=== PATIENT | female | born 1980 | race Caucasian/White ===

== ENCOUNTER → 2018-11-26 07:44 | Outpatient (CLI) | payer BC, SELFPAY ==
[2018-11-26 08:18] LABS: Add Manual Diff / Slide Review NO; Basophils Absolute Auto 0 /uL (0-100); Basophils Percent Auto 0.4 % (0-2); Eosinophils Absolute Auto 0 /uL (0-450); Eosinophils Percent Auto 0.8 % (2-4); Hematocrit 40.6 % (36-46); Hemoglobin 13.9 g/dL (12.0-16.0); Lymphocytes Absolute Auto 1100 /uL (1100-4500); Lymphocytes Percent Auto 22.8 % (25-40); Mean Corpuscular HGB Conc 34.2 % (30-36); Mean Corpuscular Hemoglobin 30.8 PG (26-34); Mean Corpuscular Volume 90.3 fL (80-100); Monocytes Absolute Auto 500 /uL (0-900); Monocytes Percent Auto 10.7 % (3-14); Neutrophils Absolute Auto 3000 /uL (1500-7000); Neutrophils Percent Auto 65.3 % (50-75); Platelet Count 224 X10^3/uL (150-400); Red Blood Cell Count 4.49 X10^6/uL (4.0-5.2); Red Cell Distribution Width 12.3 % (11.6-14.8); White Blood Cell Count 4.7 X10^3/uL (4.5-11.0)
[2018-11-26 08:34] LABS: Alanine Aminotransferase 28 IU/L (9-52); Albumin 4.1 g/dL (3.5-5.0); Albumin Globulin Ratio 1.1 (1.0-2.8); Alkaline Phosphatase 60 U/L (38-126); Aspartate Aminotransferase 37 IU/L (14-36); BUN Creatinine Ratio 11.4 (6-22); Bilirubin Total 0.5 mg/dL (0.2-1.3); Blood Urea Nitrogen 8 mg/dL (7-17); Carbon Dioxide 26 mmol/L (22-32); Chloride 103 mmol/L (98-107); Cholesterol 124 mg/dL (140-199); Estimated Glomerular Filt Rate > 60.0 mL/min (>60); Globulin 3.6 g/dL (1.7-4.1); Glucose 88 mg/dL (70-100); HDL Cholesterol 31 mg/dL (40-60); HEMOLYSIS 18 (0-50); LDL Cholesterol Calculated 71 mg/dL (<100); Potassium 4.2 mmol/L (3.4-5.1); Sodium 139 mmol/L (137-145); Total Protein 7.7 g/dL (6.3-8.2); Triglycerides 108 mg/dL (35-150)
[2018-11-26 08:39] LABS: Appearance Urine UA CLEAR; Bilirubin Urine UA NEGATIVE (NEGATIVE); Color Urine UA YELLOW; Glucose Urine UA NEGATIVE (Negative); Ketones Urine UA NEGATIVE (NEGATIVE); Leukocyte Esterase Urine UA TRACE (NEGATIVE); Nitrite Urine UA NEGATIVE (Negative); Occult Blood Urine UA NEGATIVE (Negative); Protein Urine UA NEGATIVE (Negative); pH Urine UA 6.5 (4.5-8.0)
[2018-11-26 09:13] LABS: RBC Urine 0-1/HPF (0-5/HPF); Squamous Epithelial Cell Urine 10-30 /HPF (0-5/HPF); Thyroid Stimulating Hormone 2.56 uIU/mL (0.47-4.68); WBC Urine 1-5/HPF (0-5/HPF)
[2018-11-26 09:14] LABS: Bacteria Urine Moderate (10-30); Culture Indicated Urine Cult Not Indicated; Mucus Urine 1+ (Negative)
== END ==
PROVIDERS: PCP Family Medicine; Visit Provider Family Medicine
DX: G89.4 Chronic pain syndrome (principal); Z13.220 Encounter for screening for lipoid disorders; Z13.29 Encounter for screening for other suspected endocrine disorder; Z51.81 Encounter for therapeutic drug level monitoring
CPT/HCPCS: 36415; 80053; 80061; 81003; 81015; 84443; 85025

== ENCOUNTER → 2019-08-25 08:26 | Outpatient (CLI) | payer BC, SELFPAY ==
--- NOTE | 2019-08-25 08:28 | DI.MG.S_ITS ---
BILATERAL DIGITAL SCREENING MAMMOGRAM 3D/2D WITH CAD: 08/25/2019 CLINICAL: Baseline exam. Routine screening. No prior exams were available for comparison. The tissue of both breasts is heterogeneously dense. This may lower the sensitivity of mammography. Current study was also evaluated with a Computer Aided Detection (CAD) system. No significant masses, calcifications, or other findings are seen in either breast. IMPRESSION: NEGATIVE There is no mammographic evidence of malignancy. A 1 year screening mammogram is recommended. This exam was interpreted at Station ID: [id number]. NOTE: For mammograms, a report in lay terms will be sent to the patient. Approximately 15% of breast malignancies will not be visualized mammographically. In the management of a palpable breast mass, a negative mammogram must not discourage biopsy of a clinically suspicious lesion. Electronically Signed By: Zoila mercer/je:08/25/2019 09:10:41 letter sent: Normal Exam ACR BI-RADS Category 1: Negative 3341F
== END ==
PROVIDERS: PCP Family Medicine; Referring Provider Family Medicine; Visit Provider Family Medicine
DX: Z12.31 Encounter for screening mammogram for malignant neoplasm of breast (principal)
CPT/HCPCS: 77063; 77067

== ENCOUNTER → 2020-03-16 08:46 | Outpatient (CLI) | payer BC, SELFPAY ==
--- NOTE | 2020-03-16 08:48 | DI.RAD.S_ITS ---
PROCEDURE: XR LUMBAR SPINE 2-3V INDICATIONS: Persistent lower back pain, status post lumbar fusion TECHNIQUE: 3 views of the lumbar spine were acquired. COMPARISON: [facility], MR, L-SPINE WITHOUT CONTRAST, 09/05/2016, 12:43. [facility], CR, L-SPINE 2-3 VIEWS, 10/25/2016, 14:36. FINDINGS: Bones: Postoperative changes are seen, with bilateral pedicle screws at the this L4 and L5 levels. The screws appear well placed. Vertical fixation rods are seen. A disc spacer is seen at the L4-L5 level. No findings of hardware failure or hardware loosening are seen. 5 nonrib-bearing, lumbar type vertebral bodies are seen. No acute appearing fractures are seen. No suspicious lytic or blastic lesions can be seen. Minimal levoconvex lumbar scoliotic curvature is seen. There is minimal retrolisthesis seen at the L1-2 level. There is mild loss of disc height seen at L1-2, L2-3, and L3-4. Soft tissues: Overlying bowel gas pattern is normal. No suspicious soft tissue calcifications. IMPRESSION: Unremarkable L4-5 postoperative change. Dictated by: Dontrell Martinez M.D. on 03/16/2020 at 9:02 Approved by: Dontrell Martinez M.D. on 03/16/2020 at 9:04
== END ==
PROVIDERS: PCP Family Medicine; Referring Provider Family Medicine; Visit Provider Family Medicine
DX: M54.5 Low back pain (principal); Z98.1 Arthrodesis status
CPT/HCPCS: 72100

== ENCOUNTER → 2020-05-19 08:45 | Outpatient (CLI) | payer BC, SELFPAY ==
[2020-05-19 10:05] LABS: Add Manual Diff / Slide Review NO; Basophils Absolute Auto 0 /uL (0-100); Basophils Percent Auto 0.6 % (0-2); Eosinophils Absolute Auto 100 /uL (0-450); Eosinophils Percent Auto 1.4 % (2-4); Hematocrit 39.5 % (36-46); Hemoglobin 13.4 g/dL (12.0-16.0); Lymphocytes Absolute Auto 1700 /uL (1100-4500); Lymphocytes Percent Auto 23.8 % (25-40); Mean Corpuscular HGB Conc 33.8 % (30-36); Mean Corpuscular Hemoglobin 31.2 PG (26-34); Mean Corpuscular Volume 92.3 fL (80-100); Monocytes Absolute Auto 600 /uL (0-900); Monocytes Percent Auto 8.1 % (3-14); Neutrophils Absolute Auto 4700 /uL (1500-7000); Neutrophils Percent Auto 66.1 % (50-75); Platelet Count 281 X10^3/uL (150-400); Red Blood Cell Count 4.28 X10^6/uL (4.0-5.2); Red Cell Distribution Width 12.3 % (11.6-14.8)
[2020-05-19 10:34] LABS: Alanine Aminotransferase 23 IU/L (<35); Albumin 4.3 g/dL (3.5-5.0); Albumin Globulin Ratio 1.2 (1.0-2.8); Alkaline Phosphatase 54 U/L (38-126); Aspartate Aminotransferase 30 IU/L (14-36); Bilirubin Total 0.5 mg/dL (0.2-1.3); Blood Urea Nitrogen 12 mg/dL (7-17); Calcium 9.3 mg/dL (8.4-10.2); Carbon Dioxide 30 mmol/L (22-32); Chloride 104 mmol/L (98-107); Cholesterol 156 mg/dL (140-199); Estimated Glomerular Filt Rate > 60.0 mL/min (>60); Globulin 3.7 g/dL (1.7-4.1); Glucose 83 mg/dL (70-100); HDL Cholesterol 53 mg/dL (40-60); HEMOLYSIS < 15 (0-50); LDL Cholesterol Calculated 87 mg/dL (<100); Potassium 4.6 mmol/L (3.4-5.1); Sodium 138 mmol/L (137-145); Triglycerides 78 mg/dL (35-150)
[2020-05-19 11:03] LABS: TSH w/ Reflex to FT4 1.12 uIU/mL (0.47-4.68)
== END ==
PROVIDERS: PCP Family Medicine; Referring Provider Family Medicine; Visit Provider Family Medicine
DX: Z00.00 Encounter for general adult medical examination without abnormal findings (principal)
CPT/HCPCS: 36415; 80053; 80061; 84443; 85025

== ENCOUNTER → 2020-09-28 08:08 | Outpatient (CLI) | payer BC, SELFPAY ==
--- NOTE | 2020-09-28 | DI.MG.S_ITS ---
BILATERAL DIGITAL SCREENING MAMMOGRAM 3D/2D WITH CAD: 09/28/2020 CLINICAL: Routine screening. Comparison is made to exam dated: 08/25/2019 [facility]. The tissue of both breasts is heterogeneously dense. This may lower the sensitivity of mammography. Current study was also evaluated with a Computer Aided Detection (CAD) system. No significant masses, calcifications, or other findings are seen in either breast. There has been no significant interval change. IMPRESSION: NEGATIVE There is no mammographic evidence of malignancy. A 1 year screening mammogram is recommended. This exam was interpreted at Station ID: [id number]. NOTE: For mammograms, a report in lay terms will be sent to the patient. Approximately 15% of breast malignancies will not be visualized mammographically. In the management of a palpable breast mass, a negative mammogram must not discourage biopsy of a clinically suspicious lesion. Electronically Signed By: Manuel Parisi M.D., jr/je:09/29/2020 08:55:01 letter sent: Normal Exam ACR BI-RADS Category 1: Negative 3341F
== END ==
PROVIDERS: PCP Family Medicine; Referring Provider Family Medicine; Visit Provider Family Medicine
DX: Z12.31 Encounter for screening mammogram for malignant neoplasm of breast (principal)
CPT/HCPCS: 77063; 77067

== ENCOUNTER → 2020-10-13 11:18 | Outpatient (CLI) | payer BC, SELFPAY ==
[2020-10-13 11:50] LABS: Add Manual Diff / Slide Review NO; Basophils Absolute Auto 0 /uL (0-100); Basophils Percent Auto 0.6 % (0-2); Eosinophils Absolute Auto 0 /uL (0-450); Eosinophils Percent Auto 0.7 % (2-4); Hematocrit 39.4 % (36-46); Hemoglobin 12.9 g/dL (12.0-16.0); Lymphocytes Absolute Auto 1700 /uL (1100-4500); Lymphocytes Percent Auto 24.4 % (25-40); Mean Corpuscular HGB Conc 32.8 % (30-36); Mean Corpuscular Hemoglobin 30.6 PG (26-34); Mean Corpuscular Volume 93.1 fL (80-100); Monocytes Absolute Auto 500 /uL (0-900); Monocytes Percent Auto 7.7 % (3-14); Neutrophils Absolute Auto 4600 /uL (1500-7000); Neutrophils Percent Auto 66.6 % (50-75); Platelet Count 247 X10^3/uL (150-400); Red Blood Cell Count 4.24 X10^6/uL (4.0-5.2); Red Cell Distribution Width 12.6 % (11.6-14.8); White Blood Cell Count 6.9 X10^3/uL (4.5-11.0)
== END ==
PROVIDERS: PCP Family Medicine; Referring Provider Family Medicine; Visit Provider Family Medicine
DX: R22.1 Localized swelling, mass and lump, neck (principal)
CPT/HCPCS: 36415; 85025

== ENCOUNTER → 2020-10-20 08:04 | Outpatient (CLI) | payer BC, SELFPAY ==
--- NOTE | 2020-10-20 08:05 | DI.US.S_ITS ---
PROCEDURE: US THYROID INDICATIONS: POSTERIOR RIGHT NECK LUMP TECHNIQUE: Real-time scanning was performed of the thyroid gland, with image documentation. COMPARISON: None. FINDINGS: Right: Thyroid lobe measures 5.5 x 1.7 x 1.7 cm. Left: Thyroid lobe measures 4.5 x 1.1 x 1.3 cm, and is homogenous in echotexture. Isthmus: 2 mm thick. Nodule number: 1 Location: Right inferior thyroid Size: 1.5 x 0.8 x 1.1 cm. Composition: Solid Echogenicity: Hypoechoic Shape: wider than tall. Margins: Smooth Echogenic foci: Punctate Total points: 7 ACR TI-RADS category: 5 At the area of clinical concern, there is a normal appearing lymph node, with a fatty vascular hilum that measures 10 x 5 x 15 mm. IMPRESSION: There is a 1.5 cm suspicious nodule seen involving the inferior aspect of the right thyroid, for which an ultrasound-guided percutaneous biopsy is now recommended. A normal appearing lymph node can be seen at the area of clinical concern. ACR TI-RADS definitions and recommendations: TI-RADS 1 (benign): 0 points. FNA not needed. TI-RADS 2 (not suspicious): 2 points. FNA not needed. TI-RADS 3 (mildly suspicious): 3 points. * FNA if 2.5 cm or larger, follow up if 1.5 cm or larger (at 1, 3, and 5 years). TI-RADS 4 (moderately suspicious): 4-6 points. * FNA if 1.5 cm or larger, follow up if 1 cm or larger (at 1, 2, 3, and 5 years). TI-RADS 5 (highly suspicious): 7 points or more. * FNA if 1 cm or larger, follow up if 0.5 cm or larger (every year for 5 years). Dictated by: Dontrell Martinez M.D. on 10/20/2020 at 10:22 Approved by: Dontrell Martinez M.D. on 10/20/2020 at 10:24
== END ==
PROVIDERS: PCP Family Medicine; Referring Provider Family Medicine; Visit Provider Family Medicine
DX: E04.1 Nontoxic single thyroid nodule (principal)
CPT/HCPCS: 76536

== ENCOUNTER → 2020-11-02 09:10 | Outpatient (CLI) | payer BC, SELFPAY ==
--- NOTE | 2020-11-02 | PATH_ITS ---
Note [facility] Accession Number: [id number] TESTS RESULT FLAG UNITS REF RANGE LAB Clinician Provided Cytology Information No. of containers..01 Other (Miscellaneous) No. of containers..00 Previously Prepared Cytology Slide INFERIOR RIGHT THYROID NODULE DIAGNOSIS: INFERIOR RIGHT THYROID NODULE NEGATIVE FOR MALIGNANT CELLS. B[place] CATEGORY II. SPECIMEN CONSISTS OF BENIGN FOLLICULAR CELLS, SOME OF WHICH ARE HURTHELOID, MACROPHAGES, AND COLLOID. THIS PATTERN IS CONSISTENT WITH A BENIGN FOLLICULAR NODULE. COMMENT: Medical Lab Technician slides of this case are also reviewed by Dr. Franca Chavez who concurs with the given interpretation. Pathologist ICD10: 01 E04.1 Kimberly Monique MD, Pathologist NPI- [id number] Momo Barboza, [facility] ([facility]) 01 30 CC, PINK, CLEAR RECIEVED: IN CYTOLYT WITH 5 ALCOHOL FIXED AND 5 QUICK STAINED SLIDES ALSO 1 RNA VIAL WAS RECEIVED FOR FURTHER TESTING. /VDU 11/03/2020 0723 Local FLAG LEGEND: L-Low Normal,H-High Normal,LL-Alert Low,HH-Alert High <-Panic Low,>-Panic High,A-Abnormal,AA-Critical Abnormal Performed at: 01 =[facility] [address], [place] [address] Aníbal Roth MD, Performed at: 01 [facility] [address], [place], [place] [id number] MD Aníbal Roth MD Phone: [phone]
--- NOTE | 2020-11-02 09:11 | DI.US.S_ITS ---
PROCEDURE: US FINE NEEDLE ASPIRATION INDICATIONS: THYROID NODULE TECHNIQUE: The indications, alternatives, benefits, risks, and complications of the procedure were explained to the patient. Written informed consent was obtained and placed in the chart. The thyroid region was examined sonographically and a site was chosen for ultrasound guided percutaneous sampling. The skin was prepared and draped in the usual fashion, and anesthetized with 1% lidocaine infiltrated from the skin down to the thyroid gland. Multiple passes were then performed, with contents emptied into an appropriate pathology specimen container. A bandage was applied to the area of access at completion of the study. COMPARISON: None. FINDINGS: Location(s) of lesion(s) sampled: Right lobe nodule Banner: 25 gauge hypodermic needles. Number of passes: 6 Medications: 1% lidocaine for local anaesthesia. Complications: None. IMPRESSION: Successful ultrasound-guided thyroid nodule fine needle aspiration, with cytology results pending. Please see chart below for management recommendations based on cytology results. [facility] ReportingRecommendationsNon-diagnostic* Repeat US-guided FNA, with on-site cytology evaluation if possible. * Repeated non-diagnostic nodules without high suspicion US features: close observation vs surgical consult. * Consider surgery if nodule has high suspicion US features, grows >20% in 2 dimensions on followup, or patient has clinical risk factors for malignancy. Benign* If nodule has high suspicion US features: repeat US and FNA within 12 months. * If nodule has low to intermediate suspicion US features: repeat US at 12-24 months. If nodule grows (20% increase in at least 2 dimensions, with minimal increase of 2 mm or >50% change in volume), or development of new suspicious US features, then repeat FNA or continue followup. * If nodule has very low suspicion US features: followup US at >24 months. Atypia of undetermined significance, follicular lesion of undetermined significanceRepeat FNA, molecular testing, followup US, or surgical consult.Follicular neoplasm, suspicious for follicular neoplasmSurgical consult; also consider molecular testing. Suspicious for malignancySurgical consult.MalignantSurgical consult. Dictated by: Dory Crow MD, PhD on 11/02/2020 at 13:41 Approved by: Dory Crow MD, PhD on 11/02/2020 at 13:41
== END ==
PROVIDERS: PCP Family Medicine; Referring Provider Family Medicine; Visit Provider Family Medicine
DX: E04.1 Nontoxic single thyroid nodule (principal)
CPT/HCPCS: 10005

== ENCOUNTER → 2020-11-16 13:43 | Outpatient (CLI) | payer BC, SELFPAY ==
--- NOTE | 2020-11-16 13:46 | DI.RAD.S_ITS ---
PROCEDURE: XR FOOT RT MIN 3V INDICATIONS: right foot and right ankle pain TECHNIQUE: 3 views of the foot were acquired. COMPARISON: None. FINDINGS: Bones: No fractures or dislocations. No suspicious bony lesions. Soft tissues: No tibiotalar joint effusion. Achilles tendon appears normal. IMPRESSION: No fracture. No osseous lesion. If symptoms and/or clinical suspicion for pathology persists, further assessment with repeat radiographs (7-10 days) or advanced imaging (e.g. CT, MRI or bone scan) should be considered. Dictated by: Dory Crow MD, PhD on 11/16/2020 at 18:01 Approved by: Dory Crow MD, PhD on 11/16/2020 at 18:03
[2020-11-16 13:49] LABS: RBC Urine None Seen (0-5/HPF)
[2020-11-16 14:11] LABS: Appearance Urine UA CLEAR; Bilirubin Urine UA NEGATIVE (NEGATIVE); Color Urine UA YELLOW; Glucose Urine UA NEGATIVE (Negative); Ketones Urine UA NEGATIVE (NEGATIVE); Leukocyte Esterase Urine UA TRACE (NEGATIVE); Nitrite Urine UA NEGATIVE (Negative); Occult Blood Urine UA NEGATIVE (Negative); Protein Urine UA NEGATIVE (Negative); Urobilinogen Urine UA 0.2 E.U./dL (0.2)
[2020-11-16 14:15] LABS: Add Manual Diff / Slide Review NO; Basophils Absolute Auto 100 /uL (0-100); Basophils Percent Auto 0.8 % (0-2); Eosinophils Absolute Auto 100 /uL (0-450); Eosinophils Percent Auto 0.9 % (2-4); Hematocrit 39.2 % (36-46); Hemoglobin 13.3 g/dL (12.0-16.0); Lymphocytes Absolute Auto 1900 /uL (1100-4500); Lymphocytes Percent Auto 24.2 % (25-40); Monocytes Absolute Auto 600 /uL (0-900); Monocytes Percent Auto 7.7 % (3-14); Neutrophils Absolute Auto 5200 /uL (1500-7000); Neutrophils Percent Auto 66.4 % (50-75); Platelet Count 232 X10^3/uL (150-400); Red Blood Cell Count 4.31 X10^6/uL (4.0-5.2); Red Cell Distribution Width 12.5 % (11.6-14.8); White Blood Cell Count 7.8 X10^3/uL (4.5-11.0)
[2020-11-16 14:38] LABS: Bacteria Urine Occasional (0-1); Culture Indicated Urine Specimen Cultured; Squamous Epithelial Cell Urine 1-5 /HPF (0-5/HPF); WBC Urine 1-5/HPF (0-5/HPF)
[2020-11-16 14:51] LABS: Free T4, Direct Thyroxine 0.99 ng/dL (0.78-2.19)
[2020-11-16 15:02] LABS: Alanine Aminotransferase 19 IU/L (<35); Albumin Globulin Ratio 1.2 (1.0-2.8); Alkaline Phosphatase 49 U/L (38-126); Aspartate Aminotransferase 27 IU/L (14-36); BUN Creatinine Ratio 17.4 (6-22); Bilirubin Total 0.1 mg/dL (0.2-1.3); Blood Urea Nitrogen 12 mg/dL (7-17); Calcium 9.2 mg/dL (8.4-10.2); Carbon Dioxide 23 mmol/L (22-32); Chloride 106 mmol/L (98-107); Estimated Glomerular Filt Rate > 60.0 mL/min (>60); Globulin 3.3 g/dL (1.7-4.1); Glucose 99 mg/dL (70-100); HEMOLYSIS < 15 (0-50); Potassium 4.1 mmol/L (3.4-5.1); Sodium 139 mmol/L (137-145); Total Protein 7.3 g/dL (6.3-8.2)
[2020-11-16 15:05] LABS: Thyroid Stimulating Hormone 1.23 uIU/mL (0.47-4.68)
== END ==
PROVIDERS: PCP Family Medicine; Referring Provider Registered Nurse; Visit Provider Family Medicine
DX: M25.571 Pain in right ankle and joints of right foot (principal); M79.671 Pain in right foot; G89.4 Chronic pain syndrome; R30.0 Dysuria; R59.0 Localized enlarged lymph nodes; Z13.228 Encounter for screening for other metabolic disorders; Z13.29 Encounter for screening for other suspected endocrine disorder
CPT/HCPCS: 36415; 73630; 80053; 81001; 84439; 84443; 85025; 87086

== ENCOUNTER → 2020-11-20 09:39 | Outpatient (CLI) | payer BC, SELFPAY ==
[2020-11-20 12:45] LABS: COVID19 -Nasal RAPID Negative (Negative)
== END ==
PROVIDERS: PCP Family Medicine; Visit Provider Obstetrics & Gynecology
DX: Z01.812 Encounter for preprocedural laboratory examination (principal); Z20.822 Contact with and (suspected) exposure to COVID-19
CPT/HCPCS: 87635

== ENCOUNTER 2020-11-21 06:41 | Day surgery (SDC) | payer BC, SELFPAY ==
[2020-11-17 14:10] VITALS: BMI 30.4
[2020-11-21] VITALS (8 sets, daily range): BP systolic 106–113; BP diastolic 65–76; PULSE 71–96; RESP 12–17; TEMP 36.8–37.1; O2SAT 97–100; BMI 30.2
--- NOTE | 2020-11-21 | PATH_ITS ---
[facility] Accession Number: [id number] . 01 Material submitted: . OVARY/PARATUBAL - RIGHT OVARIAN CYST AND LEFT PARATUBAL CYST . 02 Diagnosis: Right Ovarian Cyst and Left Paratubal Cyst, Cystectomies: 1. Multiple fragments consistent with hemorrhagic corpus luteum cyst. 2. Separate fragment consistent with paratubal cyst. 3. No evidence of neoplasm. MRV 11/27/2020 1524 Local . 02 Electronically signed: . Betsy Hunter MD, Pathologist NPI- [id number] . 01 Gross description: . The specimen is received in formalin, labeled right ovarian cyst and left paratubal cyst and consists of a 2.5 x 2.0 x 1.2 cm fragmented cyst with a grant wrinkled external surface. Sectioning reveals grant to grant-yellow cut surfaces with no papillary excrescences. Also received is a 1.5 x 1.0 x 0.5 cm intact grant-pink cyst which contains a clear serous fluid. The specimen is entirely submitted. . A1-A2: fragmented cyst. A3: intact cyst, bisected. (EA:[id number]) /MRV 11/23/2020 1428 Local . 02 Pathologist provided ICD-10: N83.209 . 02 CPT . 126029 Performed at: 01 [facility] [address] [facility], [place], [place] [id number] MD Aníbal Roth MD Phone: [phone] Performed at: 02 [facility] [address] [place], [place] [id number] MD Betsy Hunter MD Phone: [phone]
[2020-11-21] MEDS: LACTATED RINGERS 1,000 ML 100 ML IV (07:30)
--- NOTE | 2020-11-21 07:39 | PM.HP.1 ---
History of Present Illness History of Present Illness Date Patient Seen: 11/21/20 Time Patient Seen: 07:39 Chief complaint: LAP REMOVAL R OVARIAN CYST Narrative: Patient is a 40-year-old 1 para 1 with a known history of endometriosis. She has a right ovarian cyst and dyspareunia. She is here for a diagnostic laparoscopy with excision of right ovarian cyst and possible fulguration of endometriosis. Patient History Medical History (Updated 11/20/20 @ 12:08 by Javed Flores DO) Chronic low back pain (Unknown) Contact dermatitis Endometriosis (Unknown) Fatigue Lymphadenopathy of right cervical region Multilevel degenerative disc disease (Unknown) Right ankle pain Right foot pain Thyroid nodule Well adult exam Surgical History (Updated 11/17/20 @ 14:21 by Geneva Bishop RN) History of lumbar fusion (2017) Hx of discectomy (06/2016) Hx of laminectomy (~10/2016) Status post laparoscopy (01/15/11) Family & Social History Social History: household members significant other Tobacco & Substance use: Smoking Status Never smoker alcohol intake current alcohol intake frequency holiday/special occasion Substance Use Type does not use Meds Home Medications and Allergies Home Medications Medication Instructions Recorded Confirmed Type hydrocodone-acetaminophen 0.5 tab PO BID PRN 11/21/20 11/21/20 History Allergies Allergy/AdvReac Type Severity Reaction Status Date / Time Sulfa (Sulfonamide Allergy Mild RASH Verified 11/21/20 07:14 Antibiotics) [SULFA (SULFONAMIDE ANTIBIOTICS)] Exam Vital Signs (past 8 hours): HEENT: No thyromegaly, no anterior cervical or supraclavicular lymphadenopathy. Lungs:Clear to auscultation bilaterally, no wheezes. Cardiovascular: Regular rate and rhythm, no murmurs, rubs, or gallops. Abdomen: Well-healed laparoscopy scars. No hepatosplenomegaly. No masses palpable. External genitalia: Normal Vagina: Normal Cervix: Normal Bimanual exam: 7 Week size uterus. Mobile. Bilateral uterus sacral tenderness. Right adnexal tenderness. Assessment & Plan Assessment & Plan narrative: Assessment: 40-year-old 1 para 1 with a known history of endometriosis with dyspareunia and a right ovarian cyst. Plan: Diagnostic laparoscopy with excision of right ovarian cyst Possible fulguration of endometriosis and lysis of adhesions The risks, benefits, and alternatives to the procedure were explained to the patient. The risks including bleeding, infection, injury to the bowel, bladder, or ureters. She understands these risks and agrees to proceed. A full par Q was held and consent form was signed. COVID-19 COVID-19 status: Negative Result date/Date tested (Pos, Neg/Pending): 11/20/20 Time Spent With Patient Time with patient: less than 15 minutes
--- NOTE | 2020-11-21 07:45 | P.OP_ITS ---
Operative Date/Time/Diagnoses Date of procedure: 11/21/20 Time of procedure: 09:36 Pre-op diagnosis: Dyspareunia History of endometriosis Right ovarian cyst Post-op diagnosis: same Procedure & Clinicians Procedure: Procedures Operation Date: 11/21/20 07:45 Actual Procedures Side Surgeon p Laparoscopic Removal of Right Ovarian Cyst, Fulguration of Endometriosis Marisela Chan MD Indications: Dyspareunia Right ovarian cyst History of endometriosis Surgeon: Marisela Chan Anesthesia Type: General and Local Operative Notes Findings: 7 week size anteverted uterus Normal tubes bilaterally 2 cm x 2 cm right ovarian cyst Normal liver, gallbladder, and appendix No evidence of residual endometriosis Left paratubal cyst Adenomyosis Closure Type: primary Specimen(s): other (Right ovarian cyst) Applied: catheter (In and out) Estimated blood loss (mL): 5 Blood products transfused: none Procedure in detail: After informed consent was obtained, the patient was taken to the operating room where she was placed in the dorsal supine position. After adequate general endotracheal anesthesia was achieved, she was placed in the dorsal lithotomy position, and prepped and draped in the usual sterile fashion. A time-out was performed. A bivalve speculum was placed into the vagina and a single-tooth tenaculum was placed on the anterior lip of the cervix. The cervical os was sequentially dilated until the Zumi uterine manipulator could pass easily into the endometrial cavity. The single-tooth tenaculum was removed from the anterior lip of the cervix. The bivalve speculum was removed from the vagina. Attention was turned to the abdomen where 6 cc of 0.5% Marcaine with epinephrine were injected in the umbilical fold. A 5 mm incision was made. The Veress needle was placed into the peritoneal cavity, and its placement confirmed by aspiration and drop test. The abdominal cavity was insufflated with 3.4 L of CO2. The Veress needle was removed, and a 5 mm trocar was placed without difficulty. Two other incisions were made 4 cm lateral to the midline after 6 cc of 0.5% Marcaine with epinephrine were injected and 2 5 mm trocars were placed under direct visualization. The cyst on the right ovary was grasped with an atraumatic grasper. Using the PlasmaKinetic was settings of 40 w, the cyst was excised with cautery and cut. The cyst was removed through the trocar, and sent to pathology. Hemostasis was achieved. The left paratubal cyst was grasped with an atraumatic grasper and using cautery and cut, the stalk was amputated from the tube. This was removed through the trocar. The pelvis was copiously irrigated with warm normal saline. There was no bleeding noted. The instruments were removed from the abdomen. The CO2 was allowed to escape. The incisions were repaired with 4 0 Biosyn in a subcuticular fashion. Steri-Strips and Allevyn dressings were placed. The Zumi uterine manipulator was removed from the uterus. Sponge, lap, and instrument counts were correct x2. The pa tient tolerated the procedure well, and was taken to PACU in stable condition. Complications: none Post-operative Condition: stable Disposition: PACU Plan for aftercare: Home after recovery
--- NOTE | 2020-11-21 07:45 | PM.PREOP ---
Pre-operative Note COVID-19 COVID-19 status: Negative Result date/Date tested (Pos, Neg/Pending): 11/20/20 Interval Note History & Physical reviewed/Exam performed by Physician: Yes Changes to H&P: No H&P completed within 30 days and has changed as indicated here:: 11/21/20
--- NOTE | 2020-11-21 08:07 | SUR.OPER ---
Lithotomy on padded OR bed, head on pillow, arms secured on padded arm boards at <90 degrees abduction. Legs secured in padded yellow fins stirrups.
[2020-11-21] MEDS: BUPIVACAINE 0.5% W/ EPI (PF) 30 ML VIAL INJ (08:29)
[2020-11-21] MEDS: OXYCODONE/ACETAMINOPHEN 5/325 TABLET 1 TAB PO (09:22)
[2020-11-21] MEDS: ONDANSETRON 4 MG/2 ML INJ IV (09:24)
== END 2020-11-21 10:05 | disposition home or self-care (01) ==
PROVIDERS: PCP Family Medicine; Referring Provider Family Medicine; Visit Provider Obstetrics & Gynecology
PROC: (CPT 58662; principal; 2020-11-21 07:45)
DX: N83.201 Unspecified ovarian cyst, right side (principal); Z87.42 Personal history of other diseases of the female genital tract; N83.8 Other noninflammatory disorders of ovary, fallopian tube and broad ligament
CPT/HCPCS: 58662; 81025; J1100; J1885; J2250; J2405; J2704; J3010

== ENCOUNTER 2021-07-04 11:09 | Emergency (ER) | payer BC, SELFPAY ==
[2021-07-04 11:19] VITALS: PULSE 79; RESP 18; TEMP 36.9; O2SAT 100; BMI 30.9
--- NOTE | 2021-07-04 11:23 | DI.RAD.S_ITS ---
PROCEDURE: XR CHEST 1V INDICATIONS: chest pain TECHNIQUE: One view of the chest was acquired. COMPARISON: None. FINDINGS: Surgical changes and devices: None. Lungs and pleura: Lungs are clear. No pleural effusions or pneumothorax. Mediastinum: Mediastinal contours appear normal. Heart size is normal. Bones and chest wall: No suspicious bony lesions. Overlying soft tissues appear unremarkable. IMPRESSION: No acute cardiopulmonary disease. Dictated by: Joel Tate M.D. on 07/04/2021 at 14:30 Approved by: Joel Tate M.D. on 07/04/2021 at 14:30
[2021-07-04 12:29] LABS: Add Manual Diff / Slide Review NO; Basophils Absolute Auto 0 /uL (0-100); Basophils Percent Auto 0.6 % (0-2); Eosinophils Absolute Auto 0 /uL (0-450); Eosinophils Percent Auto 0.6 % (2-4); Hematocrit 39.5 % (36-46); Hemoglobin 13.5 g/dL (12.0-16.0); Lymphocytes Absolute Auto 1600 /uL (1100-4500); Lymphocytes Percent Auto 21.4 % (25-40); Mean Corpuscular HGB Conc 34.2 % (30-36); Mean Corpuscular Hemoglobin 31.1 PG (26-34); Mean Corpuscular Volume 90.9 fL (80-100); Monocytes Absolute Auto 600 /uL (0-900); Monocytes Percent Auto 7.9 % (3-14); Neutrophils Absolute Auto 5100 /uL (1500-7000); Neutrophils Percent Auto 69.5 % (50-75); Platelet Count 228 X10^3/uL (150-400); Red Blood Cell Count 4.34 X10^6/uL (4.0-5.2); Red Cell Distribution Width 12.5 % (11.6-14.8); White Blood Cell Count 7.4 X10^3/uL (4.5-11.0)
--- NOTE | 2021-07-04 12:33 | ED_ITS ---
HPI - Chest Pain <Max Napier PA-C - Last Filed: 07/04/21 19:21> General Chief Complaint: Chest Pain Stated Complaint: Pressure in chest, heart palps, neck pain Time Seen by Provider: 07/04/21 12:15 Source: patient Mode of arrival: Ambulatory Limitations: no limitations History of Present Illness HPI narrative: Patient is a 41-year-old female presenting to the emergency department today for evaluation of chest pressure that began yesterday. Patient states that she has experienced intermittent ?fluttering? in her heart for sometime, however she notes that it has gotten worse over the past 3 weeks. Patient states that she decided to come to the emergency department today due to the chest pressure that began yesterday that has continued to bother her today. Of note, patient states that she does not have a personal history of cardiac issues but notes that both her mother and her brother experience palpitations. Patient denies fever, chills, cough, shortness of breath, nausea, vomiting, diarrhea, abdominal pain, diaphoresis, numbness or tingling in the extremities, pain in the extremities, jaw pain, changes in vision, changes in hearing, or any other concerning symptoms. Patient states that her chest pressure worsens with movement and stretching. No further concerns were forced this time. Related Data Previous Rx's Medication Instructions Recorded hydrocodone 5 mg-acetaminophen 325 1 tab PO BID PRN #60 tab 06/20/21 mg tablet Allergies Allergy/AdvReac Type Severity Reaction Status Date / Time Sulfa (Sulfonamide Allergy Mild RASH Verified 11/21/20 07:14 Antibiotics) [SULFA (SULFONAMIDE ANTIBIOTICS)] Review of Systems <aMx Napier PA-C - Last Filed: 07/04/21 19:21> Constitutional Constitutional: Denies chills, Denies fatigue, Denies fever(s), Denies frequent falls, Denies lethargy and Denies weakness Eyes Eyes: Denies loss of vision ENT Ears, Nose, Mouth, and Throat: Denies dizziness and Denies neck pain Cardiovascular Cardiovascular: Reports chest pain (Described as pressure), Denies chest pain at rest, Reports chest pain with activity (Pressure worsens with stretching/ac tivity), Reports irregular heart rhythm, Denies lightheadedness, Denies palpitations, Denies dyspnea, Denies dyspnea on exertion and Denies orthopnea Respiratory Respiratory: Denies cough, Denies dyspnea, Denies dyspnea on exertion and Denies wheezing Gastrointestinal Gastrointestinal: Denies abdominal pain, Denies change in bowel habits, Denies diarrhea, Denies nausea and Denies vomiting Genitourinary Genitourinary: Denies hematuria, Denies flank pain, Denies urinary incontinence and Denies urinary urgency Musculoskeletal Musculoskeletal: Denies back pain, Denies muscle weakness, Denies neck pain, Denies numbness and Denies tingling Integumentary/Breasts Skin/Breast: Denies pruritus, Denies erythema, Denies rash and Denies wounds Neurologic Neurologic: Denies behavioral changes, Denies confusion, Denies dizziness, Denies frequent falls, Denies loss of vision, Denies numbness, Denies tingling and Denies weakness Psychiatric Psychiatric: Denies behavioral changes and Denies confusion Endocrine Endocrine: Denies fatigue and Denies palpitations Allergic/Immunologic Allergic/Immunologic: Denies wheezing Patient History <Max Napier PA-C - Last Filed: 07/04/21 19:21> Medical History Chronic low back pain (Unknown) Contact dermatitis Endometriosis (Unknown) Fatigue Lymphadenopathy of right cervical region Multilevel degenerative disc disease (Unknown) Right ankle pain Right foot pain Thyroid nodule Well adult exam Surgical History History of lumbar fusion (2018) Hx of discectomy (06/2016) Hx of laminectomy (~10/2016) Status post laparoscopy (01/15/11) Social History household members: significant other Smoking Status: Never smoker second hand exposure: No alcohol intake: never substance use type: does not use Smoking Status: Never smoker alcohol intake frequency: holidays/special occasions only Substance Use Type: does not use Exam <Max Napier PA-C - Last Filed: 07/04/21 19:21> Narrative Exam Narrative: GENERAL: 41 year old patient appears stated age. Well-developed patient, in mild distress. HEAD: Atraumatic. Normocephalic. EYES: Pupils equal round and reactive. Extraocular motions intact. No scleral icterus. No injection or drainage. ENT: Nose without bleeding, purulent drainage. Throat without erythema, tonsillar hypertrophy or exudate. Airway patent. NECK: Trachea midline. Non tender CARDIOVASCULAR: Regular rate and rhythm without murmurs, gallops, or rubs. RESPIRATORY: Clear to auscultation. Breath sounds equal bilaterally. No wheezes, rales, or rhonchi. GASTROINTESTINAL: Abdomen soft, non-tender, nondistended. EXTREMITIES: No edema or joint tenderness. BACK: Nontender without deformity or crepitance. No flank tenderness. NEURO: AOx3. SKIN: No rash or erythema of visible areas Initial Vital Signs Initial Vital Signs: Vital Signs Temperature 98.4 F 07/04/21 11:19 Pulse Rate 79 07/04/21 11:19 Respiratory Rate 18 07/04/21 11:19 Pulse Oximetry 100 07/04/21 11:19 <Michelle Prasad MD - Last Filed: 07/11/21 07:31> Initial Vital Signs Initial Vital Signs: Vital Signs Temperature 98.4 F 07/04/21 11:19 Pulse Rate 79 07/04/21 11:19 Respiratory Rate 18 07/04/21 11:19 Pulse Oximetry 100 07/04/21 11:19 Course <Max Napier PA-C - Last Filed: 07/04/21 19:21> Course Course Narrative: Chest x-ray EKG lipase, magnesium, troponin, CBC, CMP ordered. Orders Ordered: ED Orders 07/04/21 11:23 XR chest 1V Stat EKG-12 Lead Stat 07/04/21 12:10 Complete Blood Count AUTO DIFF Stat Comprehensive Metabolic Panel Stat Lipase Stat Magnesium Stat Troponin & CK Cardiac Panel Stat 07/04/21 14:15 Trop I [Troponin I] Stat Vital Signs Vital signs: Vital Signs - 8 hr 07/04/21 13:34 07/04/21 13:36 07/04/21 14:00 Pulse Rate 73 73 69 Respiratory Rate 12 24 Blood Pressure 131/67 131/67 117/62 Pulse Oximetry 100 100 100 07/04/21 14:30 07/04/21 15:00 Pulse Rate 75 73 Respiratory Rate Blood Pressure 121/74 123/76 Pulse Oximetry 99 100 <Michelle Prasad MD - Last Filed: 07/11/21 07:31> Orders Ordered: ED Orders 07/04/21 11:23 XR chest 1V Stat EKG-12 Lead Stat 07/04/21 12:10 Complete Blood Count AUTO DIFF Stat Comprehensive Metabolic Panel Stat Lipase Stat Magnesium Stat Troponin & CK Cardiac Panel Stat 07/04/21 14:15 Trop I [Troponin I] Stat Vital Signs Vital signs: Vital Signs - 8 hr 07/04/21 13:34 07/04/21 13:36 07/04/21 14:00 Pulse Rate 73 73 69 Respiratory Rate 12 24 Blood Pressure 131/67 131/67 117/62 Pulse Oximetry 100 100 100 07/04/21 14:30 07/04/21 15:00 Pulse Rate 75 73 Respiratory Rate Blood Pressure 121/74 123/76 Pulse Oximetry 99 100 MDM - Chest Pain <Max Napier PA-C - Last Filed: 07/04/21 19:21> Lab Data Result diagrams: 07/04/21 12:10 07/04/21 12:10 Labs: Lab Results 07/04/21 07/04/21 07/04/21 Range/Units 12:10 12:10 14:15 WBC 7.4 (4.5-11.0) X10^3/uL RBC 4.34 (4.0-5.2) X10^6/uL Hgb 13.5 (12.0-16.0) g/dL Hct 39.5 (36-46) % MCV 90.9 (80-100) fL MCH 31.1 (26-34) PG MCHC 34.2 (30-36) % RDW 12.5 (11.6-14.8) % Plt Count 228 (150-400) X10^3/uL Neut % (Auto) 69.5 (50-75) % Lymph % (Auto) 21.4 L (25-40) % [place] % (Auto) 7.9 (3-14) % Eos % (Auto) 0.6 L (2-4) % Baso % (Auto) 0.6 (0-2) % Neut # (Auto) 5100 (2461-2257) /uL Lymph # (Auto) 1600 (2810-1705) /uL [place] # (Auto) 600 (0-900) /uL Eos # (Auto) 0 (0-450) /uL Baso # (Auto) 0 (0-100) /uL Sodium 138 (137-145) mmol/L Potassium 4.0 (3.4-5.1) mmol/L Chloride 106 (98-107) mmol/L Carbon Dioxide 27 (22-32) mmol/L BUN 12 (7-17) mg/dL Creatinine 0.71 (0.52-1.04) mg/dL Estimated GFR > 60.0 (>60) mL/min BUN/Creatinine Ratio 16.9 (6-22) Glucose 87 (70-100) mg/dL Calcium 9.2 (8.4-10.2) mg/dL Magnesium 1.9 (1.6-2.3) mg/dL Total Bilirubin 0.5 (0.2-1.3) mg/dL AST 26 (14-36) IU/L ALT 15 (<35) IU/L Alkaline Phosphatase 47 (38-126) U/L Total Creatine Kinase 52 (30-135) U/L CK-MB (CK-2) TNP CK-MB (CK-2) Rel Index TNP Troponin I < 0.012 < 0.012 (0.01-0.034) ng/mL Total Protein 8.4 H (6.3-8.2) g/dL Albumin 4.6 (3.5-5.0) g/dL Globulin 3.8 (1.7-4.1) g/dL Albumin/Globulin Ratio 1.2 (1.0-2.8) Lipase 55 (23-300) U/L Imaging Data Chest x-ray: Radiologist's Impression: PROCEDURE:? XR CHEST 1V ? INDICATIONS:? chest pain ? TECHNIQUE:? One view of the chest was acquired.? ? COMPARISON:? None. ? FINDINGS:? ? Surgical changes and devices:? None.? ? Lungs and pleura:? Lungs are clear.? No pleural effusions or pneumothorax.? ? Mediastinum:? Mediastinal contours appear normal.? Heart size is normal.? ? Bones and chest wall:? No suspicious bony lesions.? Overlying soft tissues appear unremarkable.? ? IMPRESSION:? No acute cardiopulmonary disease. ? ? ? Dictated by: Joel Tate M.D. on 07/04/2021 at 14:30 ? ? Approved by: Joel Tate M.D. on 07/04/2021 at 14:30 ? ECG Data Interpretation: Ventricular rate of 73, ID interval of 126ms, normal sinus rhythm MDM Narrative Medical decision making narrative: To consider myocardial infarction versus acute coronary syndrome versus premature ventricular contractions versus costochondritis versus pneumonia versus gastroesophageal reflux disease. Overall physical examination, history, lab work, imaging in the emergency department today reassuring. Discussed with patient results of imaging and lab work, at this time she feels comfortable being discharged home. Discussed with patient the importance of following up with the primary care provider the possibility cardiac monitoring to check for premature ventricular contractions. Patient understands and agrees to plan. Strict return precautions were discussed prior to discharge. <Michelle Prasad MD - Last Filed: 07/11/21 07:31> Lab Data Labs: Lab Results 07/04/21 07/04/21 07/04/21 Range/Units 12:10 12:10 14:15 WBC 7.4 (4.5-11.0) X10^3/uL RBC 4.34 (4.0-5.2) X10^6/uL Hgb 13.5 (12.0-16.0) g/dL Hct 39.5 (36-46) % MCV 90.9 (80-100) fL MCH 31.1 (26-34) PG MCHC 34.2 (30-36) % RDW 12.5 (11.6-14.8) % Plt Count 228 (150-400) X10^3/uL Neut % (Auto) 69.5 (50-75) % Lymph % (Auto) 21.4 L (25-40) % [place] % (Auto) 7.9 (3-14) % Eos % (Auto) 0.6 L (2-4) % Baso % (Auto) 0.6 (0-2) % Neut # (Auto) 5100 (1053-4976) /uL Lymph # (Auto) 1600 (9681-3783) /uL [place] # (Auto) 600 (0-900) /uL Eos # (Auto) 0 (0-450) /uL Baso # (Auto) 0 (0-100) /uL Sodium 138 (137-145) mmol/L Potassium 4.0 (3.4-5.1) mmol/L Chloride 106 (98-107) mmol/L Carbon Dioxide 27 (22-32) mmol/L BUN 12 (7-17) mg/dL Creatinine 0.71 (0.52-1.04) mg/dL Estimated GFR > 60.0 (>60) mL/min BUN/Creatinine Ratio 16.9 (6-22) Glucose 87 (70-100) mg/dL Calcium 9.2 (8.4-10.2) mg/dL Magnesium 1.9 (1.6-2.3) mg/dL Total Bilirubin 0.5 (0.2-1.3) mg/dL AST 26 (14-36) IU/L ALT 15 (<35) IU/L Alkaline Phosphatase 47 (38-126) U/L Total Creatine Kinase 52 (30-135) U/L CK-MB (CK-2) TNP CK-MB (CK-2) Rel Index TNP Troponin I < 0.012 < 0.012 (0.01-0.034) ng/mL Total Protein 8.4 H (6.3-8.2) g/dL Albumin 4.6 (3.5-5.0) g/dL Globulin 3.8 (1.7-4.1) g/dL Albumin/Globulin Ratio 1.2 (1.0-2.8) Lipase 55 (23-300) U/L Discharge Plan Departure Patient Disposition: Home Clinical Impression: Chest pain Instructions: DI for Chest Pain Activity Restrictions/Additional Instructions: *You have been diagnosed with chest pain *What to do: *Please continue to take your regular medications as directed. [ ] New medication prescriptions sent to your pharmacy: [ ] [ ] New medication written as a paper prescription [X] No new medications given *Please follow up with your primary care provider in 2-3 days, call for an appointment. Let them know you were seen in the Emergency Department and that we ask that you be seen in follow up. We will electronically transmit a record of today's note if your PCP is in our system *If you do not have a primary care provider please contact the [facility] Resource line at [phone]. They will ask some questions about your medical history and help get you set up with a doctor in the community. *Return to Emergency Department if you should have any new, worsening or concerning symptoms, such as fever greater than 101 F, shaking chills, worsening pain, shortness of breath, unexplained sweating, pain in the upper extremities, jaw pain, persistent vomiting or other bothersome symptoms. Prescriptions: No Action hydrocodone-acetaminophen 5-325 mg tablet 1 tab PO BID PRN (Reason: pain) Qty: 60 0RF Rx Instructions: EXEMPT Referrals: Javed Flores DO [Primary Care Provider] - <Michelle Prasad MD - Last Filed: 07/11/21 07:31> Cosign ED Attending Cosignature Attestation: I was immediately available in the department for consultation throughout this patient's visit. I agree with documentation as above. Michelle Prasad MD
[2021-07-04 12:37] LABS: Alanine Aminotransferase 15 IU/L (<35); Albumin 4.6 g/dL (3.5-5.0); Albumin Globulin Ratio 1.2 (1.0-2.8); Alkaline Phosphatase 47 U/L (38-126); Aspartate Aminotransferase 26 IU/L (14-36); BUN Creatinine Ratio 16.9 (6-22); Bilirubin Total 0.5 mg/dL (0.2-1.3); Blood Urea Nitrogen 12 mg/dL (7-17); Calcium 9.2 mg/dL (8.4-10.2); Carbon Dioxide 27 mmol/L (22-32); Chloride 106 mmol/L (98-107); Creatine Kinase 52 U/L (30-135); Estimated Glomerular Filt Rate > 60.0 mL/min (>60); Globulin 3.8 g/dL (1.7-4.1); Glucose 87 mg/dL (70-100); HEMOLYSIS < 15 (0-50); Lipase 55 U/L (23-300); Magnesium 1.9 mg/dL (1.6-2.3); Sodium 138 mmol/L (137-145); Total Protein 8.4 g/dL (6.3-8.2)
[2021-07-04 12:48] LABS: Troponin I < 0.012 ng/mL (0.01-0.034)
[2021-07-04 13:34] VITALS: BP 131/67; PULSE 73; O2SAT 100
[2021-07-04 13:36] VITALS: BP 131/67; PULSE 73; RESP 12; O2SAT 100
[2021-07-04 14:00] VITALS: BP 117/62; PULSE 69; RESP 24; O2SAT 100
[2021-07-04 14:30] VITALS: BP 121/74; PULSE 75; O2SAT 99
[2021-07-04 14:48] LABS: Troponin I < 0.012 ng/mL (0.01-0.034)
[2021-07-04 15:00] VITALS: BP 123/76; PULSE 73; O2SAT 100
== END 2021-07-04 15:20 | disposition home or self-care (01) ==
PROVIDERS: Emergency Medicine; Emergency Provider Physician Assistant; PCP Family Medicine
DX: R07.9 Chest pain, unspecified (principal); R00.2 Palpitations
CPT/HCPCS: 36415; 71045; 80053; 82550; 83690; 83735; 84484; 85025; 93005; 99284

== ENCOUNTER → 2021-08-17 08:30 | Outpatient (CLI) | payer BC, SELFPAY ==
--- NOTE | 2021-08-17 08:31 | DI.RAD.S_ITS ---
PROCEDURE: XR FOOT LT MIN 3V INDICATIONS: Numbness to the toes TECHNIQUE: 3 views of the foot were acquired. COMPARISON: [facility], CR, XR FOOT RT MIN 3V, 11/16/2020, 14:02. FINDINGS: Bones: No fractures or dislocations. Mild to moderate osteophytosis along the lateral aspect of the 1st MTP. No suspicious bony lesions. Soft tissues: No tibiotalar joint effusion. Achilles tendon appears normal. IMPRESSION: No acute osseous abnormality. Dictated by: Phu Alarcon M.D. on 08/17/2021 at 9:18 Approved by: Phu Alarcon M.D. on 08/17/2021 at 9:18
--- NOTE | 2021-08-17 08:31 | DI.RAD.S_ITS ---
PROCEDURE: XR FOOT RT MIN 3V INDICATIONS: Numbness to the toes TECHNIQUE: 3 views of the foot were acquired. COMPARISON: [facility], , XR FOOT RT MIN 3V, 11/16/2020, 14:02. FINDINGS: Bones: No fractures or dislocations. 2.8 mm calcific density along the medial aspect of the 3rd proximal phalanx, which may reflect artifact. Mild osteophytosis along the lateral aspect of the 1st MTP. No suspicious bony lesions. Soft tissues: No tibiotalar joint effusion. IMPRESSION: No acute osseous abnormality. Dictated by: Phu Alarcon M.D. on 08/17/2021 at 9:15 Approved by: Phu Alarcon M.D. on 08/17/2021 at 9:18
== END ==
PROVIDERS: PCP Family Medicine; Referring Provider Family Medicine; Visit Provider Family Medicine
DX: G58.9 Mononeuropathy, unspecified (principal)
CPT/HCPCS: 73630

== ENCOUNTER → 2021-08-23 09:36 | Outpatient (CLI) | payer BC, SELFPAY ==
--- NOTE | 2021-09-10 10:09 | P.HOLT.S_ITS ---
Coordinate Measuring Equipment Operator Report Referral & Results Date Patient Seen: 08/23/21 Requesting provider: Javed Flores Indication: Palpitations Duration of monitoring (days): 6 Diary information: There were 51 patient triggered events and 45 patient diary entries These patient events were variably associated with sinus rhythm, PACs, and PVCs Data: Minimum heart rate identified was 52 beats per minute at 04:49 on 08/26/2021 Maximum overall heart rate was 185 beats per minute at 07:53 on 08/29/2021 Less than 1% of identified beats were ventricular or supraventricular ectopic in origin, which would classify them as rare. No pauses or atrial fibrillation identified on this study Impression: 6 day monitor car operator demonstrating simple PACs and PVCs as a potential source of patient's sense of palpitations based on patient events. No one rhythm predominated No other serious dysrhythmias identified on this study Clinical correlation suggested
== END ==
PROVIDERS: PCP Family Medicine; Referring Provider Family Medicine; Visit Provider Family Medicine
DX: R00.2 Palpitations (principal)
CPT/HCPCS: 93242; 93244

== ENCOUNTER → 2021-09-03 09:09 | Outpatient (CLI) | payer BC, SELFPAY ==
[2021-09-03 10:53] LABS: Cholesterol 156 mg/dL (140-199); HDL Cholesterol 40 mg/dL (40-60); LDL Cholesterol Calculated 103 mg/dL (<100); Triglycerides 67 mg/dL (35-150)
[2021-09-03 11:09] LABS: Free T4, Direct Thyroxine 1.17 ng/dL (0.78-2.19)
[2021-09-03 11:22] LABS: Thyroid Stimulating Hormone 0.969 uIU/mL (0.47-4.68)
== END ==
PROVIDERS: PCP Family Medicine; Referring Provider Family Medicine; Visit Provider Family Medicine
DX: Z00.00 Encounter for general adult medical examination without abnormal findings (principal); E04.1 Nontoxic single thyroid nodule
CPT/HCPCS: 36415; 80061; 84439; 84443

== ENCOUNTER → 2021-10-23 08:22 | Outpatient (CLI) | payer BC, SELFPAY ==
--- NOTE | 2021-10-23 08:23 | DI.US.S_ITS ---
PROCEDURE: US THYROID INDICATIONS: FOLLOW-UP NODULE TECHNIQUE: Real-time scanning was performed of the thyroid gland, with image documentation. COMPARISON: [facility], US, US FINE NEEDLE ASPIRATION, 11/02/2020, 9:36. [facility], US, US THYROID, 10/20/2020, 8:44. FINDINGS: Right: Thyroid lobe measures 5.6 x 1.6 x 2.0 cm, and contains a nodule, and is otherwise homogeneous in echotexture. Left: Thyroid lobe measures 5.0 x 1.5 x 1.2 cm, and is homogenous in echotexture. Isthmus: 2 mm thick. Nodule number: 1 Location: Right lower pole Size: 1.3 x 0.6 x 1.1 cm, previously 1.5 x 0.8 x 1.1 cm. Composition: Solid Echogenicity: Hypoechoic Shape: wider than tall. Margins: Smooth Echogenic foci: Punctate Total points: 7 ACR TI-RADS category: 5, highly suspicious IMPRESSION: Essentially unchanged size of a right lower pole thyroid nodule, which is highly suspicious by imaging characteristics. Today's maximum measurement is 1.3 cm. This nodule has previously been biopsied on 11/02/2020, with a benign diagnosis. ACR TI-RADS definitions and recommendations: TI-RADS 1 (benign): 0 points. FNA not needed. TI-RADS 2 (not suspicious): 2 points. FNA not needed. TI-RADS 3 (mildly suspicious): 3 points. * FNA if 2.5 cm or larger, follow up if 1.5 cm or larger (at 1, 3, and 5 years). TI-RADS 4 (moderately suspicious): 4-6 points. * FNA if 1.5 cm or larger, follow up if 1 cm or larger (at 1, 2, 3, and 5 years). TI-RADS 5 (highly suspicious): 7 points or more. * FNA if 1 cm or larger, follow up if 0.5 cm or larger (every year for 5 years). Dictated by: Brandt Lucas M.D. on 10/23/2021 at 8:58 Approved by: Brandt Lucas M.D. on 10/23/2021 at 9:56
== END ==
PROVIDERS: PCP Family Medicine; Referring Provider Family Medicine; Visit Provider Family Medicine
DX: E04.1 Nontoxic single thyroid nodule; G89.4 Chronic pain syndrome
CPT/HCPCS: 76536

== ENCOUNTER → 2021-12-14 10:13 | Outpatient (CLI) | payer BC, SELFPAY | PROVIDERS: PCP Family Medicine; Referring Provider Family Medicine; Visit Provider Family Medicine | DX: E04.1 Nontoxic single thyroid nodule (principal); Z53.8 Procedure and treatment not carried out for other reasons ==

== ENCOUNTER → 2022-03-15 07:48 | Outpatient (CLI) | payer BC, SELFPAY | PROVIDERS: PCP Family Medicine; Visit Provider Registered Nurse | DX: R30.0 Dysuria (principal) | CPT/HCPCS: 87077; 87086; 87186 ==

== ENCOUNTER → 2022-06-07 11:46 | Outpatient (CLI) | payer BC, SELFPAY | PROVIDERS: PCP Family Medicine; Visit Provider Physician Assistant | DX: R30.0 Dysuria (principal) | CPT/HCPCS: 87077; 87086; 87186 ==

== ENCOUNTER → 2022-09-02 16:09 | Outpatient (CLI) | payer BC, SELFPAY ==
[2022-09-02 16:26] LABS: Add Manual Diff / Slide Review NO; Basophils Absolute Auto 100 /uL (0-100); Basophils Percent Auto 0.8 % (0-2); Eosinophils Absolute Auto 0 /uL (0-450); Eosinophils Percent Auto 0.5 % (2-4); Lymphocytes Absolute Auto 1800 /uL (1100-4500); Lymphocytes Percent Auto 27.9 % (25-40); Mean Corpuscular HGB Conc 34.1 % (30-36); Mean Corpuscular Hemoglobin 30.9 PG (26-34); Mean Corpuscular Volume 90.5 fL (80-100); Monocytes Absolute Auto 500 /uL (0-900); Monocytes Percent Auto 8.4 % (3-14); Neutrophils Absolute Auto 4000 /uL (1500-7000); Neutrophils Percent Auto 62.4 % (50-75); Platelet Count 250 X10^3/uL (150-400); Red Cell Distribution Width 12.7 % (11.6-14.8); White Blood Cell Count 6.5 X10^3/uL (4.5-11.0)
[2022-09-02 17:18] LABS: TSH w/ Reflex to FT4 1.71 uIU/mL (0.47-4.68)
[2022-09-15 13:48] LABS: Percent Free Testosterone 0.54 % (0.50-2.80); Testosterone Free 0.06 ng/dL (0.10-0.85); Testosterone Total 11.4 ng/dL (.)
[2022-09-18 07:34] LABS: % Free Progesterone 1.9 % (.); Free Progesterone <0.19 ng/dL (.); Progesterone, Serum <10 ng/dL (.)
== END ==
PROVIDERS: PCP Family Medicine; Referring Provider Physician Assistant Medical; Visit Provider Physician Assistant Medical
DX: R53.83 Other fatigue (principal); R68.82 Decreased libido
CPT/HCPCS: 36415; 82670; 84144; 84402; 84403; 84443; 84999; 85025

== ENCOUNTER → 2022-09-12 07:44 | Outpatient (CLI) | payer BC, SELFPAY ==
--- NOTE | 2022-09-12 07:45 | DI.US.S_ITS ---
PROCEDURE: US PELVIC COMPLETE INDICATIONS: LEFT SIDED PELVIC PAIN, HISTORY OF ENDOMETRIOSIS TECHNIQUE: Real-time scanning was performed of the pelvic organs, with image documentation. Additional endovaginal scanning was necessary due to incomplete visualization of the adnexal and endometrial structures by transabdominal scanning. COMPARISON: [facility], US, US PELVIC COMPLETE, 07/18/2021, 11:48. FINDINGS: Uterus: Uterus is anteverted and normal in size at 8.9 x 3.3 x 4.3 cm. The myometrium is homogeneous. The endometrium measures 5 mm combined thickness. Ovaries: The right ovary measures 2 x 2 x 2 cm, with a calculated ovarian volume of 4 cc. The left ovary measures 3 x 2.1 x 2 x 1 cm, with a calculated ovarian volume of 7 cc. The ovaries have a normal sonographic appearance, with note made of a 9 mm dominant follicle within the left ovary, which is considered to be within physiologic limits. Less than 12 follicles can be seen in each ovary. No adnexal masses are seen. Normal appearing arterial waveforms are confirmed to the left ovary. Other: No pathologic free abdominal or pelvic fluid. IMPRESSION: No significant pelvic ultrasound abnormality is seen. Negative for left ovarian torsion. We strive to produce accurate, complete, and clear reports of imaging services. To assist us in improving patient care, this report was composed using standard report templates and voice recognition software. Therefore, it may contain abnormal punctuation, insertions and/or omissions. Occasional wrong-word or sound-alike substitutions may occur. Though we review the report and make efforts to correct it, we do recommend that the report be read carefully in proper context to recognize any text inaccuracies. Dictated by: Dontrell Martinez M.D. on 09/12/2022 at 13:34 Approved by: Dontrell Martinez M.D. on 09/12/2022 at 13:35
== END ==
PROVIDERS: PCP Family Medicine; Referring Provider Physician Assistant Medical; Visit Provider Physician Assistant Medical
DX: R10.2 Pelvic and perineal pain (principal); Z87.42 Personal history of other diseases of the female genital tract
CPT/HCPCS: 76830; 76856; 93976